=== PATIENT | male | born 1995 | race Caucasian/White ===

== ENCOUNTER → 2016-09-09 | Outpatient (CLI) | payer OTHER ==
--- NOTE | 2016-09-10 09:59 | CPEEG ---
[f rep st] ELECTROENCEPHALOGRAM DATE OF STUDY: 09/09/2016 INTERPRETATION: Normal EEG during wakefulness and drowsiness. There were no potentially epileptoge rebekah abnormalities present during recording. REPORT: This EEG contains 11 Hz alpha activity to the posterior head regions. There was no abnorma l activation at rest, during photic stimulation, or hyperventilation. The patient became drowsy dur ing the study. There was no abnormal activation during drowsiness or during times of arousal. /[id number]/MODL
== END ==
LOC: FCPNEURO 13:37
PROVIDERS: ATTEND Psychiatry & Neurology Neurology
DX: R40.4 Transient alteration of awareness (principal); B34.9 Viral infection, unspecified

== ENCOUNTER → 2016-09-21 | Outpatient (CLI) | payer OTHER ==
[~2016-09-21] MED LIST: GADOBUTROL 10 ML VIAL IVP ONE
== END ==
LOC: FIMAGING 10:15
PROVIDERS: ATTEND Physician Assistant Medical
DX: Q03.1 Atresia of foramina of Magendie and Luschka (principal); R40.4 Transient alteration of awareness; B34.9 Viral infection, unspecified
CPT/HCPCS: A9585

== ENCOUNTER 2017-12-13 13:39 | Emergency (ER) | payer OTHER ==
[2017-12-13 14:24] LABS: PLATELET COUNT 192 10^3/uL (150-400)
[2017-12-13] MEDS ORDERED: IOPAMIDOL (ISOVUE-300) 100 ML BTL ONE (14:54)
--- NOTE | 2017-12-13 16:21 | EDPHY ---
H & P Time Seen by Provider: 12/13/17 13:56 HPI/ROS: CHIEF COMPLAINT: Abdominal pain HISTORY OF PRESENT ILLNESS: 22-year-old male presents to the emergency department with right lower quadrant abdominal pain that began last night. Patient denies any known trauma or injury. He feels that the pain is more localized in his right lower quadrant. He denies nausea or vomiting. Normal bowel day. No urinary symptoms. No back pain. No chest pain or difficulty breathing. He has never had pain like this in the past. REVIEW OF SYSTEMS: Constitutional: No fever, no chills. Eyes: No double or blurry vision. ENT: No sore throat. Respiratory: No cough, no shortness of breath. Cardiac: No chest pain. Gastrointestinal: Abdominal pain as above. No vomiting or diarrhea Genitourinary: No dysuria. Musculoskeletal: No neck or back pain. Skin: No rashes. Neurological: No headache. Past Medical/Surgical History: Negative Social History: [employer] student Smoking Status: Current some day smoker Physical Exam: General Appearance: Alert, no distress. Afebrile nontoxic-appearing. Eyes: Pupils equal and round. Extraocular motions are all intact. ENT: Mouth: Mucous membranes moist. Respiratory: No wheezing, rhonchi, or rales, lungs are clear to auscultation. Cardiovascular: Regular rate and rhythm. Gastrointestinal: Patient has localized pain with palpation in the right lower quadrant. There is no masses, rebound or guarding noted. No CVA tenderness bilaterally. Neurological: Alert and oriented x 3, cranial nerves II through XII grossly intact Skin: Warm and dry, no rashes. Musculoskeletal: Nontender to palpate along the cervical, thoracic or lumbar spine. Neck is supple. Extremities: Full range of motion and no peripheral edema. Psychiatric: Patient is oriented X 3, there is no agitation. Constitutional: Initial Vital Signs Temperature (C) 36.4 C 12/13/17 13:43 Heart Rate 62 12/13/17 13:43 Respiratory Rate 16 12/13/17 13:43 Blood Pressure 106/64 12/13/17 13:43 O2 Sat (%) 97 12/13/17 13:43 O2 Delivery Mode Room Air Allergies/Adverse Reactions: No Known Allergies Allergy (Unverified 12/13/17 13:42) Home Medications: Medication Instructions Recorded NK [No Known Home Meds] 12/13/17 Medical Decision Making - Diagnostics Imaging Results: Imaging Impressions Abdomen CT 12/13/17 14:33 Impression: 1. Probably normal appendix. 2. Tiny amount of pelvic free fluid of undetermined etiology. 3. Mild constipation. Results discussed with Neeta Marti at 3:53 PM. General information for patients regarding this examination can be found at [email or web address]. If you have questions or comments about this report, please contact me at [phone] (hospital) or [phone] (cell). Imaging: Discussed imaging studies w/ call box wirer Radiologist ED Course/Re-evaluation: 22-year-old male presents to the emergency department with right lower quadrant abdominal pain. I was concerned about possible acute appendicitis. Laboratory studies were all within normal limits. CT imaging reveals a likely normal appearing appendix. The patient does however have a trace amount of free fluid in the pelvis. The case was discussed with Dr. Boo Brooke, secondary supervising physician, who did not directly evaluate the patient but agrees with treatment plan. He recommended calling on-call general surgeon. I spoke with Dr. Demarcus Liang, on-call general surgeon regarding the patient's trace physiologic fluid in his pelvis. The patient is afebrile. Nontoxic appearing. He does have pain when he sits upright suze his abdominal muscles. Dr. Demarcus Liang did not think further imaging was indicated. He did not think surgical consultation was indicated. The patient will return in 8 to 12 hr if he still has ongoing abdominal pain or sooner if he feels worse in any way. Differential Diagnosis: Including but not limited to acute appendicitis, kidney stone, bowel obstruction , hematoma, muscular strain - Data Points Laboratory Results: Laboratory Results 12/13/17 14:02 12/13/17 14:02 12/13/17 12/13/17 12/13/17 14:02 14:02 14:02 WBC 5.54 10^3/uL 10^3/uL (3.80-9.50) RBC 5.20 10^6/uL 10^6/uL (4.40-6.38) Hgb 16.4 g/dL g/dL (13.7-17.5) Hct 48.8 % % (40.0-51.0) MCV 93.8 fL fL (81.5-99.8) MCH 31.5 pg pg (27.9-34.1) MCHC 33.6 g/dL g/dL (32.4-36.7) RDW 13.3 % % (11.5-15.2) Plt Count 192 10^3/uL 10^3/uL (150-400) MPV 9.8 fL fL (8.7-11.7) Neut % (Auto) 46.9 % % (39.3-74.2) Lymph % (Auto) 40.8 % % (15.0-45.0) Falls % (Auto) 9.0 % % (4.5-13.0) Eos % (Auto) 2.0 % % (0.6-7.6) Baso % (Auto) 1.1 % % (0.3-1.7) Nucleat RBC Rel Count 0.0 % % (0.0-0.2) Absolute Neuts (auto) 2.60 10^3/uL 10^3/uL (1.70-6.50) Absolute Lymphs (auto) 2.26 10^3/uL 10^3/uL (1.00-3.00) Absolute Monos (auto) 0.50 10^3/uL 10^3/uL (0.30-0.80) Absolute Eos (auto) 0.11 10^3/uL 10^3/uL (0.03-0.40) Absolute Basos (auto) 0.06 10^3/uL 10^3/uL (0.02-0.10) Absolute Nucleated RBC 0.00 10^3/uL 10^3/uL (0-0.01) Immature Gran % 0.2 % % (0.0-1.1) Immature Gran # 0.01 10^3/uL 10^3/uL (0.00-0.10) Sodium 139 mEq/L mEq/L (135-145) Potassium 4.0 mEq/L mEq/L (3.3-5.0) Chloride 103 mEq/L mEq/L (97-110) Carbon Dioxide 27 mEq/l mEq/l (22-31) Anion Gap 9 mEq/L mEq/L (8-16) BUN 15 mg/dL mg/dL (7-23) Creatinine 1.0 mg/dL mg/dL (0.7-1.3) Estimated GFR > 60 Glucose 91 mg/dL mg/dL (70-100) Calcium 9.9 mg/dL mg/dL (8.5-10.4) Total Bilirubin 0.8 mg/dL mg/dL (0.1-1.4) AST 49 IU/L IU/L (17-59) ALT 42 IU/L IU/L (21-72) Alkaline Phosphatase 68 IU/L IU/L (38-126) Total Protein 8.2 g/dL g/dL (6.3-8.2) Albumin 5.0 g/dL g/dL (3.5-5.0) Urine Color PALE YELLOW Urine Appearance CLEAR Urine pH 7.0 (5.0-7.5) Ur Specific [place] 1.002 (1.002-1.030) Urine Protein NEGATIVE (NEGATIVE) Urine Ketones NEGATIVE (NEGATIVE) Urine Blood NEGATIVE (NEGATIVE) Urine Nitrate NEGATIVE (NEGATIVE) Urine Bilirubin NEGATIVE (NEGATIVE) Urine Urobilinogen NEGATIVE EU EU (0.2-1.0) Ur Leukocyte Esterase NEGATIVE (NEGATIVE) Urine Glucose NEGATIVE (NEGATIVE) Departure - Departure Disposition: Home, Routine, Self-Care Clinical Impression: Abdominal pain Qualifiers: Abdominal location: right lower quadrant Qualified Code(s): R10.31 - Right lower quadrant pain Condition: Good Instructions: Acute Abdominal Pain (ED) Additional Instructions: Abdominal Pain: Return to the Emergency Department immediately for increasing pain, fever, vomiting, or if not completely better in 8-12 hours. Diet and activity as tolerated. Referrals: Demarcus Viera MD [Primary Care Provider] - As per Instructions
[2017-12-13 16:31] VITALS: BP 110/60
== END 2017-12-13 16:30 | disposition home or self-care (01) ==
DX: R10.31 Right lower quadrant pain (principal); F17.210 Nicotine dependence, cigarettes, uncomplicated
CPT/HCPCS: Q9967

== ENCOUNTER → 2018-01-26 | Outpatient (CLI) | payer OTHER | LOC: FIMAGING 17:01 | PROVIDERS: ATTEND Internal Medicine | DX: S99.921A Unspecified injury of right foot, initial encounter (principal) ==